=== PATIENT | female | born 1955 | race Caucasian/White ===

== ENCOUNTER 2023-10-29 09:56 | Emergency (ER) | payer OTHER, MEDICARE ==
[~2023-10-29] VITALS: Ht 160 cm; Wt 74.8 kg
[2023-10-29 10:11] VITALS: BP_SYST 120; PULSE 92; RESP 16; TEMP 99.4; O2SAT 98
[2023-10-29 10:15] VITALS: BP_SYST 120; PULSE 92; RESP 16; TEMP 99.4; O2SAT 98
[2023-10-29] MEDS ORDERED: ACETAMINOPHEN 500 MG TABLET ONE (10:50)
[2023-10-29] MEDS: IBUPROFEN 400 MG TABLET PO ONE (10:54)
[2023-10-29] MEDS: ACETAMINOPHEN 500 MG TABLET PO ONE (10:55)
[2023-10-29] MEDS ORDERED: ONDA-8 TL (11:06)
[2023-10-29] MEDS ORDERED: MECL-225 PO (11:07)
== END 2023-10-29 11:26 | disposition home or self-care (01) ==
LOC: SED 09:56
DX: H92.03 Otalgia, bilateral (principal); J06.9 Acute upper respiratory infection, unspecified; R50.9 Fever, unspecified; R51.9 Headache, unspecified; Z79.899 Other long term (current) drug therapy
CPT/HCPCS: 99283